=== PATIENT | female | born 1975 | race Two or more races ===

== ENCOUNTER 2016-10-30 13:18 | Emergency (ER) | payer OTHER ==
[2016-10-30 13:49] LABS: URINE SOURCE CLEAN CATCH
[2016-10-30 13:59] LABS: URINE APPEARANCE CLEAR; URINE BILIRUBIN NEG (NEG); URINE BLOOD NEG (NEG); URINE COLOR YELLOW; URINE GLUCOSE NEG (NEG); URINE KETONE NEG (NEG); URINE LEUKOCYTE ESTERASE 1+ (NEG); URINE NITRATE NEG (NEG); URINE PH 6.5 (5-8); URINE PROTEIN NEG (NEG); URINE SPECIFIC GRAVITY 1.011 (1.003-1.035); URINE UROBILINOGEN 0.2 MG/DL (NEG)
[2016-10-30 14:03] LABS: URBCS1 AUWI 0-2 /[HPF] (0-2); URINE BACTERIA AUWI NEG (NEGATIVE); URINE SQUAMOUS EPITHELIAL CELL NONE SEEN /[HPF]
[2016-10-30 14:23] LABS: CULTURE INDICATED? NO
[2016-10-30 14:38] LABS: BASOPHIL% 0.3 % (0-2.5); EOSINOPHIL# 0.1 X10e3 (0-0.7); EOSINOPHIL% 0.8 % (0.0-7.0); HEMATOCRIT 38.9 % (35.0-45.0); HEMOGLOBIN 13.4 gm/dL (12.0-16.0); LYMPHOCYTE# 3.3 X10e3 (1.0-3.5); LYMPHOCYTE% 33.3 % (17.0-45.0); MEAN CELL VOLUME 88.4 FL (83-96); MEAN CORPUSCULAR HEMOGLOBIN 30.6 PG (28-34); MEAN CORPUSCULAR HGB CONC 34.6 g/dL (30-36); MEAN PLATELET VOLUME 8.8 FL (6.5-11.5); MONOCYTE# 0.7 X10e3 (0-1.0); NEUTROPHIL# 5.7 X10e3 (1.5-7.1); NEUTROPHIL% 58.6 % (40-75); PLATELET COUNT 269 X10e3 (140-420); RED CELL DISTRIBUTION WIDTH 12.5 % (11.0-15.5); WHITE BLOOD COUNT 9.8 X10e3 (4.0-10.5)
[2016-10-30 14:49] LABS: DIFF IND NO
[2016-10-30 14:56] LABS: ALBUMIN SERUM 4.4 g/dL (3.5-5.0); ALKALINE PHOSPHATASE 56 U/L (32-92); ALT (SGPT) 17 U/L (10-40); AMYLASE 23 U/L (0-46); AST (SGOT) 32 U/L (10-42); BILIRUBIN, DIRECT 0.1 mg/dL (0.0-0.2); BILIRUBIN,INDIRECT 0.2 mg/dL (0.0-0.9); BILIRUBIN,TOTAL 0.3 mg/dL (0.2-2.0); BLOOD UREA NITROGEN 11 mg/dL (9-23); BUN/CREATININE RATIO 18.33; CALCIUM SERUM 9.4 mg/dL (8.4-10.2); CARBON DIOXIDE 29 mmol/L (22-31); CHLORIDE 98 mmol/L (100-111); CREATININE SERUM 0.6 mg/dL (0.6-1.4); GLOM FILT RATE Estimated ABOVE60 mL/min (>60); GLUCOSE FASTING 145 mg/dL (70-110); LIPASE 27 U/L (22-51); POTASSIUM 3.4 mmol/L (3.5-5.1); PROTEIN TOTAL SERUM 8.1 g/dL (6.0-8.3); SODIUM 137 mmol/L (135-145)
== END 2016-10-30 16:02 | disposition home or self-care (01) ==
LOC: CED 13:18
PROVIDERS: Emergency Medicine
DX: K21.9 Gastro-esophageal reflux disease without esophagitis (principal); F41.9 Anxiety disorder, unspecified; R06.4 Hyperventilation
CPT/HCPCS: 36415; 80048; 80076; 81003; 82150; 83690; 84703; 85025; 96374; 96375; 99284; J2060